=== PATIENT | female | born 1985 | race Caucasian/White ===

== ENCOUNTER → 2024-07-21 17:23 | Outpatient (CLI) | payer OTHER, SELFPAY ==
--- NOTE | 2024-07-21 17:25 | DI.MRI.S_ITS ---
PROCEDURE: MR CERVICAL SPINE WO CON INDICATIONS: Cervicalgia, neck pain left side TECHNIQUE: Noncontrast sagittal T1 spin echo and T2 fast spin echo, sagittal STIR, foraminal oblique sagittal T2 fast spin echo, and axial gradient echo or T2 fast spin echo through the cervical spine. COMPARISON: None. FINDINGS: Image quality: Excellent. Alignment and Curvature: There is normal bony alignment. Bone Marrow: Marrow demonstrates normal overall signal. Spinal Cord: Visualized spinal cord has normal size and signal. No cerebellar tonsillar herniation. Paraspinous Soft Tissues: No paravertebral masses. Prevertebral soft tissues are normal in thickness. C2-C3: Normal appearance. C3-C4: Slight loss of disc signal. No central stenosis. No neural foraminal narrowing. No neural compression. C4-C5: Slight loss of disc signal. Minimal, diffuse disc bulge. No central stenosis. No neural foraminal narrowing. No neural compression. C5-C6: Slight loss of disc signal. Minimal, diffuse disc bulge. No central stenosis. No neural foraminal narrowing. No neural compression C6-C7: Slight loss of disc signal. No central stenosis. No neural foraminal narrowing. No neural compression C7-T1: Normal appearance. IMPRESSION: Mild multilevel degenerative disc disease. No central stenosis. No neural foraminal narrowing. No neural compression. Dictated by: Rosy Winston MD, PhD on 07/22/2024 at 9:43 Approved by: Rosy Winston MD, PhD on 07/22/2024 at 9:46
== END ==
LOC: MRI 17:25
PROVIDERS: PCP Physician Assistant; Referring Provider Nurse Practitioner Family; Visit Provider Nurse Practitioner Family
DX: M54.2 Cervicalgia (principal)
CPT/HCPCS: 72141